=== PATIENT | female | born 1960 | race Caucasian/White ===

== ENCOUNTER 2019-07-22 08:59 | Day surgery (SDC) | payer MEDICAID ==
[2019-07-22] VITALS (9 sets, daily range): BP systolic 130–163; BP diastolic 46–88; PULSE 75–83; TEMP 97.7–98.5
[~2019-07-22] VITALS: Ht 157.5 cm; Wt 106.6 kg
[2019-07-22] MEDS ORDERED: ASPIRIN E.C. 8181 MG PO (09:11)
[2019-07-22] MEDS ORDERED: COREG12.5 MG PO (09:12)
[2019-07-22] MEDS ORDERED: LIPITOR 40MG TA40 MG PO (09:12)
[2019-07-22] MEDS ORDERED: LASIX 20MG TABL20 MG PO (09:12)
[2019-07-22] MEDS ORDERED: SYNTHROID0.125 MG/T PO (09:13)
[2019-07-22] MEDS ORDERED: ZESTRIL40 MG PO (09:13)
[2019-07-22] MEDS ORDERED: GLUCOPHAGE XR500 M1 PO (09:14)
[2019-07-22] MEDS ORDERED: ALDACTONE 25MG25 M1 PO (09:14)
[2019-07-22 10:20] LABS: PROTHROMBIN TIME 11.7 SECONDS (9.7-12.8)
[2019-07-22 10:36] LABS: HEMATOCRIT 43.4 % (37.0-47.0); HEMOGLOBIN 14.6 g/dl (12.5-16.0); MEAN CELL VOLUME 90 fl (80.0-100.0); MEAN CORPUSCULAR HEMOGLOBIN 30 pg (27.0-31.0); MEAN CORPUSCULAR HGB CONC 34 g/dl (33.0-37.0); MEAN PLATELET VOLUME 9.7 fl (7.4-10.4); PLATELET COUNT 274 K/mm3 (130-400); RED BLOOD COUNT 4.82 M/mm3 (4.10-5.30); REDCELL DISTRIBUTION WIDTH-CV 13.5 % (11.5-14.5)
[2019-07-22 11:14] LABS: CALCIUM 9.8 mg/dL (8.4-10.2); CREATININE, serum 0.81 (0.52-1.25); POTASSIUM 4.3 mmol/L (3.4-5.0)
--- NOTE | 2019-07-22 11:36 | NUR ---
SEE MERGE DOCUMENTATION FOR MEDICATION ADMINISTRATION TIMES AND INTRA/POST PROCEDURE SEDATION ASSESSMENTS.
--- NOTE | 2019-07-22 18:33 | NUR ---
Pt resting in the room, has C/O pain at incision site, tylenol given for relief and ice pack applied, VS have been stable since comming to floor from the industrial laborer.
--- NOTE | 2019-07-22 20:05 | NUR ---
Shift assessment complete. Pt resting in bed, awake, a&o, cooperative c cares. Pt c/o pain to L chest pacemaker insertion site, rated "6/10", reports APAP did not help pain earlier et requests something stronger. [employer] oncall notified; will admin [place] PRN per new order. Pt denies any other c/o. Pacemaker incision noted to L upper chest, no edema/drainage or other complications, gauze/paper tape dressing C/D/I. L arm sling in place. INT patent. Tele in place. Pt denies further needs. Call light in reach, will continue to monitor.
[2019-07-23 08:20] VITALS: BP 143/58; PULSE 77; TEMP 98
--- NOTE | 2019-07-23 09:08 | NUR ---
Pt resting in bed, has C/O "soreness' at the surgical site, no other issues at this time, shift assessments complete, left Pt call light in reach, bed in lowest position.
--- NOTE | 2019-07-23 10:04 | NUR ---
Initial visit; Patient thanked [employer] for looking in on her and offering God's blessings.
[2019-07-23] MEDS ORDERED: COREG 25MG25 MG/TAB PO (10:29)
[2019-07-23 12:01] VITALS: BP 138/70; PULSE 71; TEMP 98.4
--- NOTE | 2019-07-23 12:43 | NUR ---
Pt discharged to home, escorted Pt to entrance, left with spouse via private transportation.
== END 2019-07-23 12:45 | disposition home or self-care (01) ==
LOC: COL.CAR 08:59 → MEDICAL 08:59 → COL.CAR 07-23 12:45
PROVIDERS: Internal Medicine Cardiovascular Disease
DX: I42.0 Dilated cardiomyopathy (principal); E11.9 Type 2 diabetes mellitus without complications; Z79.84 Long term (current) use of oral hypoglycemic drugs; Z79.899 Other long term (current) drug therapy; Z79.82 Long term (current) use of aspirin; Z87.891 Personal history of nicotine dependence; I10 Essential (primary) hypertension; I27.20 Pulmonary hypertension, unspecified; E03.9 Hypothyroidism, unspecified
CPT/HCPCS: OP; C1721; C1777; C1894; C1898; J0690; J2250; J3010; J7030